=== PATIENT | male | born 1970 | race Hispanic/Latino ===

== ENCOUNTER 2020-12-24 01:00 | Emergency (ER) | payer BC ==
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
[2020-12-24 02:59] VITALS: BP 180/91; TEMP 98.6; O2SAT 98
== END 2020-12-24 01:57 | disposition left against medical advice (07) ==
LOC: ER 01:00
DX: Z53.21 Procedure and treatment not carried out due to patient leaving prior to being seen by health care provider (principal)
CPT/HCPCS: 99282